=== PATIENT | male | born 1970 | race Caucasian/White ===

== ENCOUNTER 2017-03-06 15:28 | Emergency (ER) | payer BC ==
[~2017-03-06] VITALS: Ht 177.8 cm; Wt 101.6 kg
[2017-03-06] MEDS ORDERED: PREDNISONE20 MG PO (18:22)
[2017-03-06] MEDS ORDERED: MOTRIN800 MG PO (18:22)
[2017-03-06] MEDS ORDERED: FLEXERIL10 MG PO (18:22)
[2017-03-06 18:53] VITALS: BP 126/81
== END 2017-03-06 18:56 | disposition home or self-care (01) ==
LOC: EME 15:28
DX: M54.42 Lumbago with sciatica, left side (principal); G89.29 Other chronic pain; F17.200 Nicotine dependence, unspecified, uncomplicated
CPT/HCPCS: 72100; 99281; 99283; J1885; J7512